=== PATIENT | female | born 1995 | race Caucasian/White ===

== ENCOUNTER → 2023-05-10 | Outpatient (CLI) | payer OTHER ==
[2023-05-12 12:40] LABS: APTIMA MEDIA TYPE Urine; C. TRACHOMATIS BY TMA Negative (Negative); N. GONORRHOEAE BY TMA Negative (Negative); SPECIMEN SOURCE Urine
== END ==
LOC: LAB 14:59 → LAB SHORT 14:59
PROVIDERS: Family Medicine
DX: Z34.01 Encounter for supervision of normal first pregnancy, first trimester (principal)
CPT/HCPCS: 87086; 87491; 87591

== ENCOUNTER → 2023-12-12 | Outpatient (CLI) | payer OTHER | END | disposition home or self-care (01) | LOC: LAB 12:09 → LAB SHORT 12:09 | DX: Z34.93 Encounter for supervision of normal pregnancy, unspecified, third trimester (principal); Z3A.36 36 weeks gestation of pregnancy | CPT/HCPCS: 87081; 87150 ==

== ENCOUNTER 2023-12-30 12:35 | Inpatient (IN) | payer OTHER ==
[~2023-12-30] VITALS: Ht 157.5 cm; Wt 89.0 kg
[2023-12-30 12:48] VITALS: BP 132/84
[2023-12-30] MEDS ORDERED: FentaNYL 2mcg/ml-Bup 0.1% Epd 250 ML EPI PRN (13:20)
[2023-12-30] MEDS ORDERED: Ondansetron HCl 2 MG / ML 2ML Vial IV PRN (13:20)
[2023-12-30] MEDS ORDERED: Tranexamic Acid 100 ML IV SCH (13:20)
[2023-12-30] MEDS ORDERED: Lactated Ringer's 1,000 ML IV PRN (13:20)
[2023-12-30] MEDS ORDERED: Misoprostol 200 MCG Tab XX PRN (13:20)
[2023-12-30] MEDS ORDERED: Oxytocin 10 Unit / ML Vial IM PRN (13:20)
[2023-12-30] MEDS ORDERED: Acetaminophen 500 MG Tab PO PRN (13:20)
[2023-12-30] MEDS ORDERED: Methylergonovine Maleate 0.2MG / ML 1ML Amp IM PRN (13:20)
[2023-12-30] MEDS ORDERED: Misoprostol 200 MCG Tab PR PRN (13:20)
[2023-12-30] MEDS ORDERED: Lactated Ringer's 1,000 ML IV SCH ×4 (13:20→17:45)
[2023-12-30] MEDS ORDERED: OXYTOCIN/RINGER'S LACTATE 500 ML IV SCH ×3 (13:20→17:45)
[2023-12-30] MEDS ORDERED: Carboprost Tromethamine 250 MCG/ML 1ML Amp IM PRN (13:20)
[2023-12-30] MEDS ORDERED: ePHEDrine Sulfate 50 MG/ML 1ML Injection XX PRN (13:20)
[2023-12-30] MEDS ORDERED: Calcium Carbonate 500 MG Tab Chew PO SCH (13:25)
[2023-12-30] MEDS ORDERED: ACYC200 (13:35)
[2023-12-30] MEDS ORDERED: PRENATAL TABLE1 EAC2 PO (13:35)
[2023-12-30 13:50] LABS: BASOPHILS ABSOLUTE AUTO 0.03 K/mm3 (0.00-0.23); BASOPHILS PERCENT AUTO 0 % (0-2); EOSINOPHILS ABSOLUTE AUTO 0.13 K/mm3 (0.00-0.68); EOSINOPHILS PERCENT AUTO 1 % (0-6); Hematocrit 33.5 % (33.0-51.0); Hemoglobin 10.9 g/dL (11.5-16.0); IMMATURE GRAN ABSOLUTE AUTO 0.06 K/mm3 (0.00-0.10); IMMATURE GRAN PERCENT AUTO 0 % (0-1); LYMPHOCYTES ABSOLUTE AUTO 2.29 K/mm3 (0.84-5.20); LYMPHOCYTES PERCENT AUTO 17 % (21-46); MONOCYTES ABSOLUTE AUTO 0.94 K/mm3 (0.16-1.47); MONOCYTES PERCENT AUTO 7 % (4-13); Mean Corpuscular HGB 25.6 pg (26.0-34.0); Mean Corpuscular HGB Conc 32.5 g/dL (31.5-36.5); Mean Corpuscular Volume 79 fL (80-100); NEUTROPHILS ABSOLUTE AUTO 10.06 K/mm3 (1.96-9.15); NEUTROPHILS PERCENT AUTO 74 % (41-73); Platelet Count 129 K/mm3 (150-400); RDW Coefficient Variation 14.6 % (11.7-14.2); RDW Standard Deviation 42.3 fL (35.1-46.3); Red Blood Cell Count 4.26 M/mm3 (3.80-5.20); White Blood Cell Count 13.51 K/mm3 (4.00-11.30)
[2023-12-30 13:51] LABS: Mean Platelet Volume 14.2 fL (9.1-12.4)
[2023-12-30 17:03] VITALS: BP 132/76
[2023-12-30 19:25] VITALS: BP 125/82
[2023-12-30] MEDS ORDERED: FentaNYL Citrate 50 MCG/ML 2 ML Injection IV PRN (19:30)
[2023-12-30 20:32] VITALS: BP 142/80
[2023-12-30 21:38] VITALS: BP 126/79
[2023-12-30] MEDS ORDERED: Ampicillin Sod 2,000 MG in NS 100 ML IV ONE (23:00)
[2023-12-31] VITALS (36 sets, daily range): BP systolic 105–157; BP diastolic 56–87
[2023-12-31] MEDS ORDERED: DiphenhydrAMINE HCl 50 MG/ML 1ML Vial IV PRN (00:40)
[2023-12-31] MEDS ORDERED: Metoclopramide HCl 5MG / ML 2ML Vial IV PRN (00:40)
[2023-12-31] MEDS ORDERED: ePHEDrine Sulfate 50 MG/ML 1ML Injection IV PRN (00:40)
[2023-12-31] MEDS ORDERED: Naloxone HCl 0.4MG / ML 1ML Vial IV PRN (00:40)
[2023-12-31] MEDS ORDERED: Ondansetron HCl 2 MG / ML 2ML Vial IV PRN (00:45)
[2023-12-31] MEDS ORDERED: Ampicillin Sod 1,000 MG in NS 50 ML IV SCH (03:00)
[2023-12-31] MEDS ORDERED: OxyCODONE 5 mg/Acetamin 325 mg TABLET PO PRN (16:00)
[2023-12-31] MEDS ORDERED: Carboprost Tromethamine 250 MCG/ML 1ML Amp IM PRN (16:00)
[2023-12-31] MEDS ORDERED: Witch Hazel/Glycerin PADS TOP PRN (16:05)
[2023-12-31] MEDS ORDERED: Benzocaine Topical Anesthetic Spray 60GM TOP PRN (16:05)
[2023-12-31] MEDS ORDERED: Misoprostol 200 MCG Tab PO PRN (16:05)
[2023-12-31] MEDS ORDERED: Acetaminophen 325 MG TABLET PO PRN (16:05)
[2023-12-31] MEDS ORDERED: Docusate Sodium 100 MG Cap PO PRN (16:05)
[2023-12-31 16:10] LABS: PCO2 Cord - Arterial 58.5 mmHg (40-50); PO2 Cord - Arterial 16.6 mmHg (16-20); pH Cord - Arterial 7.21 (7.28-7.35)
[2023-12-31] MEDS ORDERED: Lactated Ringer's 1,000 ML IV SCH (16:10)
[2023-12-31] MEDS ORDERED: Misoprostol 200 MCG Tab PR PRN (16:10)
[2023-12-31] MEDS ORDERED: Methylergonovine Maleate 0.2MG / ML 1ML Amp IM PRN (16:10)
[2023-12-31 16:11] LABS: PCO2 Cord - Venous 41.6 mmHg (40-50); PO2 Cord - Venous 25.8 mmHg (28-32); pH Umbilical Cord - Venous 7.36 (7.26-7.35)
[2023-12-31] MEDS ORDERED: Lanolin Cream TOP SCH (16:55)
[2023-12-31] MEDS ORDERED: Misoprostol 100 MCG Tab PO PRN (16:55)
[2023-12-31] MEDS ORDERED: Ketorolac Tromethamine 30mg Vial IV SCH (17:00)
[2023-12-31] MEDS ORDERED: Misoprostol 100 MCG Tab PO SCH (23:00)
[2024-01-01 03:59] VITALS: BP 119/59
--- NOTE | 2024-01-01 03:59 | NUR ---
RN NOTED THAT PT'S FACE APPEARS PUFFY AND SWOLLEN. RN ASKED PT TO LOOK IN MIRROR, PT AGREES THAT HER FACE LOOKS VERY PUFFY, SPECIFICALLY ARPOUND HER EYES. DECLINES VISUAL DISTURBANCES, HEADACHE, AND EPIGASTRIC PAIN. RN EDUCATED PT ON WARNING SIGNS FOR PREECLAMPSIA AND ASKED PT TO CALL IF SHE DEVELOPS HEADACHE, EPIGASTRIC PAIN, VISUAL DISTURBANCES, OR MORE SWELLING IN HANDS/FEET/FACE. PT VERBALIZES UNDERSTANDING. VSS, BREATH SOUNDS CLEAR.
[2024-01-01 06:22] VITALS: BP 136/65
[2024-01-01 08:05] VITALS: BP 134/65
[2024-01-01 08:07] LABS: BASOPHILS ABSOLUTE AUTO 0.04 K/mm3 (0.00-0.23); BASOPHILS PERCENT AUTO 0 % (0-2); EOSINOPHILS ABSOLUTE AUTO 0.04 K/mm3 (0.00-0.68); EOSINOPHILS PERCENT AUTO 0 % (0-6); Hematocrit 31.3 % (33.0-51.0); Hemoglobin 10.3 g/dL (11.5-16.0); IMMATURE GRAN ABSOLUTE AUTO 0.12 K/mm3 (0.00-0.10); IMMATURE GRAN PERCENT AUTO 1 % (0-1); LYMPHOCYTES ABSOLUTE AUTO 1.95 K/mm3 (0.84-5.20); LYMPHOCYTES PERCENT AUTO 9 % (21-46); MONOCYTES ABSOLUTE AUTO 1.51 K/mm3 (0.16-1.47); MONOCYTES PERCENT AUTO 7 % (4-13); Mean Corpuscular HGB 25.9 pg (26.0-34.0); Mean Corpuscular HGB Conc 32.9 g/dL (31.5-36.5); Mean Corpuscular Volume 79 fL (80-100); NEUTROPHILS ABSOLUTE AUTO 17.46 K/mm3 (1.96-9.15); NEUTROPHILS PERCENT AUTO 83 % (41-73); Platelet Count 106 K/mm3 (150-400); RDW Coefficient Variation 14.6 % (11.7-14.2); RDW Standard Deviation 41.6 fL (35.1-46.3); Red Blood Cell Count 3.98 M/mm3 (3.80-5.20); White Blood Cell Count 21.12 K/mm3 (4.00-11.30)
[2024-01-01] MEDS ORDERED: Prenatal Vit/FE Fumarate/FA 1 Tab PO SCH (09:00)
--- NOTE | 2024-01-01 12:57 | NUR ---
PT WENT TO NURSERY AT 1130, PT AWARE NEEDS VS DONE, IN HOLDING BABY AFTER FEEDING HER. DR MOREJON MADE ROUNDS TO DC ABX AND CYTOTEC PO AND FOR RN TO DISCHARGE PT TO BOARDER STATUS THIS AFTER NOON.
[2024-01-01 15:20] VITALS: BP 125/85
--- NOTE | 2024-01-01 16:39 | NUR ---
DC INSTRUCTIONS GONE OVER WITH PT, DENIES ANY QUESTIONS TO DC TO BOARDER STATUS. BOARDER STATUS EXPLAINED TO PATIENT, VERBLIZES UNDERSTANDING
== END 2024-01-01 17:05 | disposition home or self-care (01) | DRG 807 ==
LOC: BC 12:35 → OBS 12:35 → BC 13:16
PROVIDERS: Family Medicine; ADMIT Advanced Practice Midwife
PROC: 10D07Z6 Extraction of Products of Conception, Vacuum, Via Natural or Artificial Opening (ICD-10-PCS; principal; 2023-12-31)
PROC: 3E0R3BZ Introduction of Anesthetic Agent into Spinal Canal, Percutaneous Approach (ICD-10-PCS; 2023-12-31)
PROC: 00HU33Z Insertion of Infusion Device into Spinal Canal, Percutaneous Approach (ICD-10-PCS; 2023-12-31)
PROC: 0UQMXZZ Repair Vulva, External Approach (ICD-10-PCS; 2023-12-31)
DX: O42.92 Full-term premature rupture of membranes, unspecified as to length of time between rupture and onset of labor (principal); Z37.0 Single live birth; O24.92 Unspecified diabetes mellitus in childbirth; O48.0 Post-term pregnancy; O99.62 Diseases of the digestive system complicating childbirth; K21.9 Gastro-esophageal reflux disease without esophagitis; Z3A.40 40 weeks gestation of pregnancy; Z90.89 Acquired absence of other organs; Z79.899 Other long term (current) drug therapy; O75.81 Maternal exhaustion complicating labor and delivery; O70.0 First degree perineal laceration during delivery
CPT/HCPCS: 36415; 51702; 59025; 82803; 82947; 85025; 86850; 86900; 86901; 86923; A9270; J0290; J1885; J2210; J2405; J2590; J3010; J7120

== ENCOUNTER → 2024-02-14 | Outpatient (CLI) | payer OTHER ==
[~2024-02-14] MED LIST: ACYC200; PRENATAL TABLE1 EAC2 PO
[2024-02-14 20:54] LABS: Bacterial Vaginosis PCR Negative (NEGATIVE); Candida Group, PCR NOT DETECTED (NOT DETECT); Candida glabrata-krusei, PCR NOT DETECTED (NOT DETECT)
== END ==
LOC: LAB 17:33 → LAB SHORT 17:33
PROVIDERS: Family Medicine
DX: N89.8 Other specified noninflammatory disorders of vagina (principal)
CPT/HCPCS: 87481; 87661; 87801

== ENCOUNTER → 2024-03-19 | Outpatient (CLI) | payer OTHER ==
[2024-03-29 06:40] LABS: HPV HIGH RISK BY TMA Not Detected; HPV SOURCE Cervical
== END | disposition home or self-care (01) ==
LOC: LAB 11:51 → LAB SHORT 11:51
PROVIDERS: Family Medicine
DX: Z12.4 Encounter for screening for malignant neoplasm of cervix (principal)
CPT/HCPCS: 87624; G0123